=== PATIENT | male | born 1935 | race Caucasian/White ===

== ENCOUNTER 2018-05-07 07:00 | Day surgery (SDC) | payer MEDICARE, OTHER ==
[~2018-05-07 07:00] MED LIST: Lactated Ringers 1,000 ML IV SCH
[2018-05-07] MEDS ORDERED: Propofol 200 MG/20 ML SDV ONE (07:36)
[2018-05-07] MEDS ORDERED: fentaNYL 100 MCG/2 ML SDV ONE (07:36)
[2018-05-07 10:14] VITALS: BP 139/73
--- NOTE | 2018-05-07 16:56 | OR ---
PREOPERATIVE DIAGNOSIS: History of polyps. POSTOPERATIVE DIAGNOSIS: Colonic polyps x4. PROCEDURE PROPOSED: Total flexible colonoscopy. PROCEDURE DONE: Total flexible colonoscopy with polypectomy x4. INDICATION: This is an 82-year-old gentleman with a personal history of polyps. His last examination was 3 years ago at which point he had several polyps. He denies any family history of colon cancer. TECHNIQUE: The patient brought to the endoscopy suite, placed in left lateral decubitus position. He was sedated per MALL MANAGER with propofol. The flexible video colonoscope was then passed transanally and under visualization advanced to the cecum. The patient was found to have a couple of polyps in the cecal area, both removed by cold biopsy forceps technique and submitted for pathologic examination. The remainder of the ascending, transverse, and descending colon was unremarkable. The low sigmoid colon at 15 cm revealed a couple of small polyps, each removed with 1 bite of the cold biopsy forceps and submitted for pathologic examination. There were no signs of any diverticulosis, colitis, or other abnormalities and the rectum appeared normal. The scope was then was then withdrawn. He tolerated procedure well. FINAL IMPRESSION: 1. Colonic polyps x4, removed. 2. History of previous polyps. PLAN: Will be sent a letter with the pathology report. If they are all precancerous-type polyps, I may suggest 1 more examination in 3 years. If they are nonadenomatous type polyps, I feel that he likely does not need any future examinations because he would be 87 when he needs his next 1 in 5 years. SCM: 05/07/2018 09:26:25 MODL: 05/07/2018 16:48:32 /[id number]
== END 2018-05-07 11:05 | disposition home or self-care (01) ==
LOC: VM.SDS 07:00
PROVIDERS: ATTEND Surgery
DX: Z12.11 Encounter for screening for malignant neoplasm of colon (principal); K63.5 Polyp of colon; D12.0 Benign neoplasm of cecum; G47.33 Obstructive sleep apnea (adult) (pediatric); M81.0 Age-related osteoporosis without current pathological fracture; E78.00 Pure hypercholesterolemia, unspecified; Z86.010 Personal history of colon polyps
CPT/HCPCS: 00811; 45380; J2704; J3010; J7120; 88305

== ENCOUNTER 2020-09-09 00:45 | Emergency (ER) | payer MEDICARE, OTHER ==
[2020-09-09] MEDS: Aspirin 81 MG Tab.Chew PO ONE (01:10)
--- NOTE | 2020-09-09 01:11 | EDM.PDOC ---
ED HPI GENERAL MEDICAL PROBLEM - General Chief Complaint: Chest Pain Stated Complaint: Chest pressure Time Seen by Provider: 09/09/20 00:50 Source of Information: Reports: Patient, Family History Limitations: Reports: No Limitations - History of Present Illness INITIAL COMMENTS - FREE TEXT/NARRATIVE: Chest pressure that started about 9 PM tonight midsternal nonradiating patient states is about a 5 out of 10 that has been constant states it is really not a pain just a pressure he has no other symptoms at this time Patient states that he had the same episode the other night that woke him up at 9 or so o'clock he took 2 Advil laying down got up the next morning and the pain was gone. Patient has cardiac family history Father at 51 with a heart attack. He currently has hyperlipidemia high cholesterol which he takes medicine for he takes a.m. 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 mid sternal chest Pain Score (Numeric/FACES): 6 - Related Data Allergies Allergy/AdvReac Type Severity Reaction Status Date / Time amoxicillin [From Augmentin] Allergy Rash Verified 09/09/20 01:01 clavulanic acid Allergy Rash Verified 09/09/20 01:01 [From Augmentin] Home Meds: Home Meds Calcium Carbonate/Vitamin D2 [Oyster Shell Calcium-Vit D Tab] 1 tab PO TID 03/06/15 [History] Cholecalciferol (Vitamin D3) [Vitamin D3] 1 tab PO BID 03/06/15 [History] Ezetimibe [Zetia] 10 mg PO DAILY 03/06/15 [History] Multivitamin [Multivitamins] 1 tab PO DAILY 03/06/15 [History] Phenytoin Sodium Extended [Dilantin] 1 tab PO TID 03/06/15 [History] Pravastatin [Pravachol] 80 mg PO DAILY 03/06/15 [History] Denosumab [Prolia] 60 mg .XX ASDIRECTED 05/04/18 [History] Past Medical History Cardiovascular History: Reports: Blood Clots/VTE/DVT, Heart Murmur, High Cholesterol, Other (See Below) Other Cardiovascular History: Valvular heart disease Respiratory History: Reports: Sleep Apnea Other Gastrointestinal History: hx colon polyps Musculoskeletal History: Reports: Other (See Below) Neurological History: Reports: Seizure Other Neuro History: DIZZINESS Endocrine/Metabolic History: Reports: Osteoporosis Hematologic History: Reports: Anemia Dermatologic History: Other Dermatologic History: Lipoma of torso. Actinic kerotosis - Past Surgical History GI Surgical History: Reports: Colonoscopy Other Musculoskeletal Surgeries/Procedures:: foot sx. Right knee pain ED ROS GENERAL - Review of Systems Review Of Systems: See Below Constitutional: Reports: No Symptoms HEENT: Reports: No Symptoms Respiratory: Reports: No Symptoms Cardiovascular: Reports: Chest Pain, Other (No endorgan signs or symptoms). Denies: Blood Pressure Problem, Claudication, Dyspnea on Exertion, Edema, Lightheadedness, Orthopnea, Palpitations, PND, Syncope Endocrine: Reports: No Symptoms GI/Abdominal: Reports: No Symptoms : Reports: No Symptoms Musculoskeletal: Reports: No Symptoms Skin: Reports: No Symptoms Neurological: Reports: No Symptoms Psychiatric: Reports: No Symptoms Hematologic/Lymphatic: Reports: No Symptoms Immunologic: Reports: No Symptoms ED EXAM, GENERAL - Physical Exam Exam: See Below Exam Limited By: No Limitations General Appearance: Alert, WD/WN, No Apparent Distress Eye Exam: Bilateral Eye: Normal Inspection Throat/Mouth: Normal Inspection, Normal Lips, Normal Teeth, Normal Gums, Normal Oropharynx, Normal Voice, No Airway Compromise Head: Atraumatic, Normocephalic Neck: Normal Inspection, Supple, Non-Tender, Full Range of Motion Respiratory/Chest: No Respiratory Distress, Lungs Clear, Normal Breath Sounds, No Accessory Muscle Use. No: Chest Non-Tender Cardiovascular: Normal Peripheral Pulses, Regular Rate, Rhythm, No Edema, No Gallop, No JVD, No Murmur, No Rub GI/Abdominal: Normal Bowel Sounds, Soft, Non-Tender, No Organomegaly, No Distention, No Abnormal Bruit, No Mass Extremities: Normal Inspection, Normal Range of Motion, Non-Tender, No Pedal Edema, Normal Capillary Refill Neurological: Alert, Oriented, CN II-XII Intact, Normal Cognition, Normal Gait, Normal Reflexes, No Motor/Sensory Deficits Psychiatric: Normal Affect, Normal Mood Skin Exam: Warm, Dry, Intact, Normal Color, No Rash #1 Interpretation Rhythm: NSR [place]: Normal P-Wave: Present QRS: Normal EKG Interpretation Comments: Normal sinus rhythm no acute findings sourced ST elevation or depression there is a first-degree AV block noted with a OK interval of 245 Course - Vital Signs Text/Narrative:: CBC BMP troponin EKG chest x-ray aspirin nitro 0.4 p.o. Trop [address] Anglin hospitilist will accept \ Heprin 4000units IV heprin gtt 1000 units after Last Recorded V/S: Last Vital Signs Temp 36.6 C 09/09/20 00:45 Pulse 66 09/09/20 00:45 Resp 16 09/09/20 00:45 BP 179/91 H 09/09/20 00:45 Pulse Ox 97 09/09/20 00:45 - Orders/Labs/Meds Orders: Active Orders 24 hr Category Date Time Status EKG 12 Lead [EKG Documentation Completion] [RC] STAT Care 09/09/20 00:45 Active Chest 1V Frontal [CR] Stat Exams 09/09/20 01:04 Ordered Labs: Laboratory Tests 09/09/20 09/09/20 Range/Units 01:10 01:10 WBC 6.6 (4.0-10.0) x10^3/uL RBC 3.97 L (4.5-6.0) x10^6/uL Hgb 12.7 L (14.0-18.0) g/dL Hct 35.9 L (40.0-52.0) % MCV 90.4 (78.0-93.0) fL MCH 32.0 (26.0-32.0) pg MCHC 35.4 (32.0-36.0) g/dL RDW Coeff of Johnny 11.8 (10.0-15.0) % Plt Count 192 (130-400) x10^3/uL Neut % (Auto) 56.6 (50.0-80.0) % Lymph % (Auto) 29.9 (25.0-50.0) % Mccone % (Auto) 11.0 (2.0-11.0) % Eos % (Auto) 2.0 (0.0-4.0) % Baso % (Auto) 0.5 (0.2-1.2) % Sodium 132 L (136-145) mmol/L Potassium 3.8 (3.5-5.1) mmol/L Chloride 96 L (98-107) mmol/L Carbon Dioxide 27 (21-32) mmol/L Anion Gap 12.8 (5-15) mmol/L BUN 14 (7-18) mg/dL Creatinine 0.8 (0.70-1.30) mg/dL Est Cr Clr Drug Dosing 64.26 mL/min Estimated GFR (MDRD) > 60 Glucose 102 H (70-99) mg/dL Calcium 9.2 (8.5-10.1) mg/dL Troponin I High Sens 1733 H* (<=76) ng/L Meds: Medications Discontinued Medications Generic Name Dose Route Start Last Admin Trade Name Freq PRN Reason Stop Dose Admin Aspirin 324 mg 09/09/20 01:10 09/09/20 02:03 Aspirin 81 Mg Tab.Chew PO 09/09/20 01:11 324 mg ONETIME ONE Administration Nitroglycerin 0.4 mg 09/09/20 01:10 Nitroglycerin 0.4 Mg Tab.Sl SL 09/09/20 01:11 ONETIME ONE Departure - Departure Time of Disposition: 02:05 Disposition: DC/Tfer to Acute Hospital 02 Reason for Transfer *Q: Other (nstemi) Condition: Good Clinical Impression: NSTEMI (non-ST elevated myocardial infarction) Forms: ED Department Discharge Sepsis Event Note (ED) - Focused Exam Vital Signs: Vital Signs Temp Pulse Resp BP Pulse Ox 09/09/20 00:45 36.6 C 66 16 179/91 H 97 - Problem List & Annotations (1) NSTEMI (non-ST elevated myocardial infarction) SNOMED Code(s): 06403616 Code(s): I21.4 - NON-ST ELEVATION (NSTEMI) MYOCARDIAL INFARCTION Status: Acute - My Orders Last 24 Hours: My Active Orders 09/09/20 00:45 EKG 12 Lead [EKG Documentation Completion] [RC] STAT 09/09/20 01:04 Chest 1V Frontal [CR] Stat - Assessment/Plan Last 24 Hours: My Active Orders 09/09/20 00:45 EKG 12 Lead [EKG Documentation Completion] [RC] STAT 09/09/20 01:04 Chest 1V Frontal [CR] Stat
[2020-09-09] MEDS: Nitroglycerin 0.4 MG Tab.SL SL ONE (01:14)
[2020-09-09 01:30] VITALS: PULSE 66
[2020-09-09 01:55] LABS: CHLORIDE,CL 96 mmol/L (98-107); SODIUM,NA 132 mmol/L (136-145)
[2020-09-09 02:00] LABS: ANION GAP 12.8 mmol/L (5-15)
[2020-09-09] MEDS ORDERED: Heparin Sodium/0.45% NaCl 25,000 UNITS/500 ML BAG IV SCH ×2 (02:30→02:35)
[2020-09-09] MEDS: Heparin Sodium 5,000 Units/ML Vial IVPUSH ONE ×2 (02:30)
[2020-09-09 02:31] LABS: PTT,PARTIAL THROMBOPLSTIN TIME 24.8 SEC (25.6-32.8)
[2020-09-09] MEDS: Heparin Sodium/0.45% NaCl 500 ML ONE (02:35)
[2020-09-09 03:12] VITALS: BP 156/80
--- NOTE | 2020-09-09 08:30 | CR ---
[id number] RAD/RAD Chest PA or AP 1V EXAM: RAD Chest PA or AP 1V INDICATION: CHEST PAIN COMPARISON: None. DISCUSSION: Cardiomediastinal silhouette is normal in size and contour. No infiltrate, effusion, pneumothorax, or edema. Left basilar subsegmental atelectasis and/or scarring. Old left-sided rib fractures. IMPRESSION: No acute cardiopulmonary abnormality. Derick Clinton DO 09/09/20 0829 Thank you for allowing us to participate in the care of your patient.
== END 2020-09-09 02:50 | disposition short-term general hospital (02) ==
LOC: VM.ED 00:45
DX: I21.4 Non-ST elevation (NSTEMI) myocardial infarction (principal); R56.9 Unspecified convulsions; E78.00 Pure hypercholesterolemia, unspecified; Z88.0 Allergy status to penicillin; Z79.899 Other long term (current) drug therapy
CPT/HCPCS: 71045; 80048; 84484; 85025; 85610; 85730; 93005; 96374; 99285-25; A9270-GY; J1644

== ENCOUNTER 2021-07-30 06:24 | Day surgery (SDC) | payer MEDICARE, OTHER ==
[~2021-07-30 06:24] MED LIST changes: +Sodium Chloride 0.9% 10 ML Syringe FLUSH PRN
[2021-07-30] MEDS ORDERED: Lactated Ringers 1,000 ML IV SCH (07:00)
[2021-07-30] MEDS ORDERED: Propofol 200 MG/20 ML SDV ONE (07:42)
[2021-07-30] MEDS ORDERED: Midazolam 1 MG/ML 2 ML SDV ONE (07:42)
[2021-07-30] MEDS ORDERED: fentaNYL 100 MCG/2 ML SDV ONE (07:42)
[2021-07-30 08:32] VITALS: BP 138/67; PULSE 57
== END 2021-07-30 09:24 | disposition home or self-care (01) ==
LOC: VM.SDS 06:24
PROVIDERS: ATTEND Student in an Organized Health Care Education/Training Program
DX: Z12.11 Encounter for screening for malignant neoplasm of colon (principal); D12.2 Benign neoplasm of ascending colon; D12.3 Benign neoplasm of transverse colon; I25.2 Old myocardial infarction; I25.10 Atherosclerotic heart disease of native coronary artery without angina pectoris; G47.33 Obstructive sleep apnea (adult) (pediatric); E78.00 Pure hypercholesterolemia, unspecified; M81.0 Age-related osteoporosis without current pathological fracture; I10 Essential (primary) hypertension; Z98.890 Other specified postprocedural states; Z88.8 Allergy status to other drugs, medicaments and biological substances
CPT/HCPCS: 00812; 88305; J2250; J2704; J3010; J7120

== ENCOUNTER 2021-09-26 12:03 | Emergency (ER) | payer MEDICARE, OTHER ==
[2021-09-26 12:17] VITALS: BP 147/65; PULSE 63
[2021-09-26] MEDS: Magnesium Hydroxide 400 MG/5 ML Susp 30 ML Cup PO ONE (12:38)
[2021-09-26] MEDS: Take Home: Cyclobenzaprine 10 MG Tab, 4 Tab Pack PO ONE (12:38)
== END 2021-09-26 12:45 | disposition home or self-care (01) ==
LOC: VM.ED 12:03
DX: M54.50 Low back pain, unspecified (principal); K59.00 Constipation, unspecified; I25.10 Atherosclerotic heart disease of native coronary artery without angina pectoris; E78.00 Pure hypercholesterolemia, unspecified; M19.90 Unspecified osteoarthritis, unspecified site; Z88.0 Allergy status to penicillin; Z79.82 Long term (current) use of aspirin; Z79.899 Other long term (current) drug therapy; Z95.1 Presence of aortocoronary bypass graft
CPT/HCPCS: 99283; 99284; A9270-GY

== ENCOUNTER 2023-01-27 06:00 | Emergency (ER) | payer MEDICARE, OTHER ==
[2023-01-27 06:28] VITALS: PULSE 67
[2023-01-27 06:32] LABS: BASOPHILS ABSOLUTE AUTO 0.1 x10^3/uL (0.0-0.2); BASOPHILS PERCENT AUTO 0.7 % (0.2-1.2); EOSINOPHILS ABSOLUTE AUTO 0.2 x10^3/uL (0.0-0.5); EOSINOPHILS PERCENT AUTO 2.2 % (0.0-4.0); HEMATOCRIT 36.4 % (40.0-52.0); HEMOGLOBIN 12.7 g/dL (14.0-18.0); IMMATURE GRAN ABSOLUTE AUTO 0.01 x10^3/uL (0.00-0.07); LYMPHOCYTES ABSOLUTE AUTO 2.3 x10^3/uL (1.0-4.8); LYMPHOCYTES PERCENT AUTO 31.5 % (25.0-50.0); MEAN CORPUSCULAR HEMOGLOBIN 31.4 pg (26.0-32.0); MEAN CORPUSCULAR HGB CONC 34.9 g/dL (32.0-36.0); MEAN CORPUSCULAR VOLUME 90.1 fL (78.0-93.0); MONOCYTES ABSOLUTE AUTO 0.8 x10^3/uL (0.0-0.8); MONOCYTES PERCENT AUTO 11.5 % (2.0-11.0); NEUTROPHILS ABSOLUTE AUTO 3.9 x10^3/uL (1.8-7.7); PLATELET COUNT,PLT 175 x10^3/uL (130-400); RED BLOOD CELL COUNT 4.04 x10^6/uL (4.5-6.0); WHITE BLOOD CELL COUNT,WBC 7.3 x10^3/uL (4.0-10.0)
[2023-01-27] MEDS: Meclizine 25 MG Tab PO ONE (06:33)
[2023-01-27] MEDS: Ondansetron 4 MG/2 ML SDV IVPUSH ONE (06:33)
[2023-01-27 06:49] LABS: INR 0.9 (0.9-1.1); PTT,PARTIAL THROMBOPLSTIN TIME 25.8 SEC (23.6-33.6)
[2023-01-27 06:51] LABS: A/G RATIO 1.13; ALBUMIN 3.5 g/dL (3.4-5.0); ANION GAP 11.9 mmol/L (5-15); BILIRUBIN TOTAL 0.4 mg/dL (0.2-1.0); C-REACTIVE PROTEIN 1.84 mg/dL (<=0.30); CALCIUM 8.5 mg/dL (8.5-10.1); CREATININE 0.6 mg/dL (0.70-1.30); EST CRCL DRUG DOSING (CG) 79.75 mL/min; MAGNESIUM 1.9 mg/dL (1.8-2.4); POTASSIUM,K 3.9 mmol/L (3.5-5.1); PROTEIN TOTAL,TP 6.6 g/dL (6.4-8.2)
[2023-01-27 08:12] VITALS: BP 157/74
== END 2023-01-27 08:06 | disposition short-term general hospital (02) ==
LOC: VM.ED 06:00
DX: I63.9 Cerebral infarction, unspecified (principal); I25.10 Atherosclerotic heart disease of native coronary artery without angina pectoris; E78.00 Pure hypercholesterolemia, unspecified; Z88.0 Allergy status to penicillin; Z88.1 Allergy status to other antibiotic agents; Z79.899 Other long term (current) drug therapy
CPT/HCPCS: 70450; 80053; 82947; 83735; 84484; 85025; 85610; 85730; 86140; 96374; 99285-25; A9270-GY; J2405